=== PATIENT | male | born 1965 | race African-American/Black ===

== ENCOUNTER 2018-08-25 01:58 | Emergency (ER) | payer MEDICAID, OTHER ==
[~2018-08-25] VITALS: Ht 165.1 cm; Wt 100.0 kg
[~2018-08-25 01:58] MED LIST: DOXA8TAB81 PO; LISI40TA4 PO
[2018-08-25 03:23] LABS: BASOPHILS % 1.5 % (0.0-2.0); EOSINOPHILS % 5.7 % (0.0-5.0); HEMATOCRIT. 38.6 % (42.0-52.0); HEMOGLOBIN. 12.2 g/dL (14.0-18.0); MEAN CORPUSCULAR HEMOGLOBIN 23.1 pg (28.0-32.0); MEAN CORPUSCULAR VOLUME 72.9 fL (80.0-94.0); MEAN PLATELET VOLUME 7.7 fl (7.4-10.4); MONOCYTES % 6.4 % (2.0-8.0); NEUTROPHILS % 58.4 % (40.0-76.0); PLATELET 226 x1000/uL (130-400); RED BLOOD CELL COUNT 5.29 mill/uL (4.7-6.1); RED CELL DISTRIBUTION WIDTH 16.7 % (11.6-14.6)
[2018-08-25 03:33] LABS: CHLORIDE 106 mEq/L (98-107)
[2018-08-25 05:11] VITALS: BP 141/80
== END 2018-08-25 05:15 | disposition home or self-care (01) ==
LOC: ER 01:58
DX: G56.32 Lesion of radial nerve, left upper limb (principal); I10 Essential (primary) hypertension; F17.200 Nicotine dependence, unspecified, uncomplicated; Z88.2 Allergy status to sulfonamides; Z88.8 Allergy status to other drugs, medicaments and biological substances
CPT/HCPCS: 29125; 36415; 73110; 73130; 80048; 99285

== ENCOUNTER 2019-01-19 12:30 | Emergency (ER) | payer MEDICAID ==
[~2019-01-19] VITALS: Ht 170.2 cm; Wt 95.0 kg
[2019-01-19] MEDS ORDERED: ONDANSETRON HCL 4MG/2ML INJ IV STA (14:32)
[2019-01-19] MEDS ORDERED: SODIUM CHLORIDE 0.9% 1,000 ML IV ONE (14:32)
[2019-01-19] MEDS ORDERED: MORPHINE SULFATE 4 MG/ML CPJ (NOT FOR IM USE) IV STA (14:32)
[2019-01-19 15:00] LABS: CHLORIDE 104 mEq/L (98-107)
[2019-01-19 15:01] LABS: INR 1.1; PROTHROMBIN TIME 11.2 sec (9.1-11.1)
[2019-01-19 16:16] LABS: BASOPHILS % 0.4 % (0.0-2.0); HEMATOCRIT. 42.4 % (42.0-52.0); HEMOGLOBIN. 13.6 g/dL (14.0-18.0); LYMPHOCYTES % 14.2 % (20.0-50.0); MEAN CORPUSCULAR HEMOGLOBIN 23.5 pg (28.0-32.0); MEAN PLATELET VOLUME 8.1 fl (7.4-10.4); MONOCYTES % 7.3 % (2.0-8.0); NEUTROPHILS % 77.1 % (40.0-76.0); PLATELET 260 x1000/uL (130-400); RED BLOOD CELL COUNT 5.81 mill/uL (4.7-6.1); RED CELL DISTRIBUTION WIDTH 17.1 % (11.6-14.6)
[2019-01-19 18:25] VITALS: BP 148/87
== END 2019-01-19 19:10 | disposition home or self-care (01) ==
LOC: ER 12:30
DX: K80.50 Calculus of bile duct without cholangitis or cholecystitis without obstruction (principal)
CPT/HCPCS: 36415; 76705; 80053; 83690; 85025; 85610; 96361; 96374; 96375; 99284; J2270; J2405; J7030

== ENCOUNTER 2023-05-11 20:22 | Emergency (ER) | payer MEDICAID ==
[~2023-05-11] VITALS: Ht 167.6 cm; Wt 90.0 kg
[~2023-05-11 20:22] MED LIST changes: +LISI40TA13 PO; -LISI40TA4 PO
[2023-05-11 20:29] VITALS: O2SAT 100
[2023-05-11] MEDS ORDERED: LOPERAMIDE HCL 2MG CAPSULE PO ONE (22:45)
[2023-05-11] MEDS ORDERED: SODIUM CHLORIDE 0.9% 1,000 ML IV ONE (22:45)
[2023-05-11 23:39] LABS: BASOPHILS % 0.3 % (0.0-2.0); EOSINOPHILS % 3.7 % (0.0-5.0); HEMATOCRIT. 38.9 % (42.0-52.0); HEMOGLOBIN. 12.5 g/dL (14.0-18.0); LYMPHOCYTES % 17.7 % (20.0-50.0); MEAN CORPUSCULAR HEMOGLOBIN 22.9 pg (28.0-32.0); MEAN CORPUSCULAR VOLUME 71.5 fL (80.0-94.0); MEAN PLATELET VOLUME 7.4 fl (7.4-10.4); MONOCYTES % 7.2 % (2.0-8.0); NEUTROPHILS % 71.1 % (40.0-76.0); PLATELET 249 x1000/uL (130-400); RED BLOOD CELL COUNT 5.45 mill/uL (4.7-6.1); RED CELL DISTRIBUTION WIDTH 17.8 % (11.6-14.6)
[2023-05-11 23:41] LABS: CHLORIDE 105 mEq/L (98-107)
[2023-05-12] MEDS ORDERED: LOPERAMIDE HCL 2MG CAPSULE PO NR (04:30)
[2023-05-12] MEDS ORDERED: IMOD MT (05:54)
[2023-05-12 06:30] VITALS: BP 157/88; PULSE 87; RESP 20; TEMP 98.6
== END 2023-05-12 07:00 | disposition home or self-care (01) ==
LOC: ER 20:22
DX: R19.7 Diarrhea, unspecified (principal); R53.1 Weakness; I10 Essential (primary) hypertension
CPT/HCPCS: 99284; 74176; 96360; 80053; 83605; 83690; 85025; 36415; J7030

== ENCOUNTER 2025-05-15 08:53 | Emergency (ER) | payer OTHER ==
[~2025-05-15] VITALS: Ht 170.2 cm; Wt 82.0 kg
[2025-05-15 08:55] VITALS: O2SAT 100
[2025-05-15 09:52] LABS: PLATELET 401 x1000/uL (130-400); RED BLOOD CELL COUNT 5.08 mill/uL (4.7-6.1); RED CELL DISTRIBUTION WIDTH 16.6 % (11.6-14.6)
[2025-05-15] MEDS: HYDROCODONE/ACETAMINOPHEN 10/325MG TABLET PO ONE (10:07)
[2025-05-15 10:08] LABS: CREATININE 0.8 mg/dL (0.6-1.3)
[2025-05-15 10:09] LABS: UREA NITROGEN BLOOD 18 mg/dL (9-23)
[2025-05-15] MEDS: LIDOCAINE 5% PATCH TOP SCH (10:16)
[2025-05-15 16:11] VITALS: TEMP 36.9
[2025-05-15] MEDS ORDERED: MORPHINE SULFATE 4 MG/ML INJ (FOR IV/IM USE) IV SCH (17:00)
[2025-05-15] MEDS ORDERED: IBUP-2029 MT (17:03)
[2025-05-15 20:38] VITALS: BP 115/62; PULSE 66; RESP 18; O2SAT 100
== END 2025-05-15 20:47 | disposition home or self-care (01) ==
LOC: ER 09:09
DX: M54.50 Low back pain, unspecified (principal); M79.604 Pain in right leg; I10 Essential (primary) hypertension; Q05.9 Spina bifida, unspecified; Z79.899 Other long term (current) drug therapy; Z87.442 Personal history of urinary calculi; Z88.2 Allergy status to sulfonamides; Z99.3 Dependence on wheelchair
CPT/HCPCS: 36415; 72131; 74176; 80048; 85027; 99284